=== PATIENT | male | born 1965 | race Caucasian/White ===

== ENCOUNTER 2020-10-27 06:03 | Day surgery (SDC) | payer BC ==
[2020-10-23 08:22] LABS: Urine WBC None Seen /hpf (0 - 3)
[2020-10-23 08:34] LABS: Basophils # (auto) 0.1 10 ^3/uL (0-0.2); Basophils % (auto) 0.9 % (0.0-2.0); Eosinophils # (auto) 0.4 10 ^3/uL (0-0.8); Eosinophils % (auto) 5.6 % (0.0-7.0); Hematocrit 44.2 % (41.0-53.0); Hemoglobin 15.5 g/dL (13.5-17.5); Lymphocytes # (auto) 2.2 10 ^3/uL (0.4-5.4); Lymphocytes % (auto) 30.6 % (10.0-50.0); Mean Corpuscular Hemoglobin 33.3 pg (28.0-32.0); Mean Corpuscular Hgb Conc. 35.1 g/dL (32.0-36.0); Mean Corpuscular Volume 94.8 fL (80.0-100.0); Monocytes # (auto) 0.7 10 ^3/uL (0-1.3); Monocytes % (auto) 10.4 % (0.0-12.0); Neutrophils # (auto) 3.8 10 ^3/uL (1.6-8.6); Neutrophils % (auto) 52.5 % (37.0-80.0); Nucleated Red Blood Cells % 0.1 %; Red Blood Cells 4.66 10^6/uL (4.5-5.90); Red Cell Distribution Width 14.4 % (11.8-14.3); White Blood Cell 7.2 10^3/uL (4.4-10.8)
[2020-10-23 09:04] LABS: Urine Bacteria NONE SEEN /hpf (None Seen); Urine Blood Negative /uL (Negative); Urine Hyaline Cast FEW /lpf (0 - 2); Urine Mucus FEW (None Seen)
[2020-10-23 09:10] LABS: Albumin 3.5 g/dL (3.4-5.0); BUN/Creatinine Ratio 18.4; Calcium 8.2 mg/dL (8.5-10.1); Potassium 4.3 mmol/L (3.5-5.1)
[2020-10-23 09:12] LABS: Bilirubin, Total 0.3 mg/dL (0.2-1.0); Total Protein 7.1 g/dL (6.4-8.2)
[~2020-10-27] VITALS: Ht 182.9 cm; Wt 127.9 kg
[~2020-10-27 06:03] MED LIST: MET50T PO; QUET300T4 PO; SERT100T PO
[2020-10-27] MEDS ORDERED: ceFAZolin 1GM/50ML 100 ML IV ONE (06:22)
[2020-10-27] MEDS ORDERED: PROPOFOL 10 MG/ML 20 ML IV ONE ×3 (06:52→08:00)
[2020-10-27] MEDS ORDERED: ROCURONIUM 10MG/ML 10ML VIAL IV ONE (06:52)
[2020-10-27] MEDS ORDERED: fentaNYL CITRATE 100 MCG/2 ML VL ONE (06:52)
[2020-10-27] MEDS ORDERED: SODIUM CHLORIDE LOCK 10 ML ONE (06:52)
[2020-10-27] MEDS ORDERED: MIDAZOLAM HCL 2MG/2ML 2ml VIAL (1mg/ml) ONE (06:52)
[2020-10-27] MEDS ORDERED: GLYCOPYRROLATE 0.2 MG/ML 1ML VIAL ONE (06:52)
[2020-10-27] MEDS ORDERED: NEOSTIGMINE 1 MG/ML INJ (10mg/10ML VIAL) ONE (06:52)
[2020-10-27] MEDS ORDERED: MEPERIDINE HCL (25 MG/ML) 1ML VIAL ONE (06:52)
[2020-10-27] MEDS ORDERED: ONDANSETRON HCL 4 MG/2 ML VIAL ONE (06:52)
[2020-10-27] MEDS ORDERED: BUPIVACAINE 0.25% INJ 50ML VIAL ONE (07:12)
[2020-10-27] MEDS ORDERED: LIDOCAINE 1%-Mpf/Epinephrine 1:200,000 ONE (07:12)
[2020-10-27] MEDS ORDERED: HYDROmorphone HCL 2 MG/ML VL IV PRN (07:15)
[2020-10-27] MEDS ORDERED: MORPHINE SULFATE 4 MG/ML SYR/VIAL IV PRN (07:15)
[2020-10-27] MEDS ORDERED: ONDANSETRON HCL 4 MG/2 ML VIAL IV PRN (07:15)
[2020-10-27] MEDS ORDERED: KETAMINE HCL 10 ML ONE (07:20)
[2020-10-27] MEDS ORDERED: POVIDONE IODINE 10 % TOPICAL OINT 30GM TOP ONE (08:03)
[2020-10-27] MEDS ORDERED: HYDROmorphone HCL 2 MG/ML VL ONE (08:25)
[2020-10-27 08:40] VITALS: BP 118/78
== END 2020-10-27 08:55 | disposition home or self-care (01) ==
LOC: SUR 06:03
PROVIDERS: ATTEND Surgery
DX: J45.909 Unspecified asthma, uncomplicated (principal); I10 Essential (primary) hypertension; F32.9 Major depressive disorder, single episode, unspecified; E66.01 Morbid (severe) obesity due to excess calories; G89.29 Other chronic pain; Z20.822 Contact with and (suspected) exposure to COVID-19; Z79.899 Other long term (current) drug therapy; Z68.38 Body mass index [BMI] 38.0-38.9, adult; K42.0 Umbilical hernia with obstruction, without gangrene
CPT/HCPCS: 36415; 49587; 80053; 81001; 85025; 86850; 86900; 86901; 88302; J0690; J1170; J2001; J2175; J2250; J2405; J2704; J3010; J3490; U0003